=== PATIENT | female | born 1945 | race Caucasian/White ===

== ENCOUNTER → 2018-06-30 | Emergency (ER) | payer MEDICARE, OTHER ==
[~2018-06-30] MED LIST: AZIT500T45 PO; BUPXL150 PO; ESTR0.5T18 PO; IBUP400T13 PO; IOPAMIDOL 76% 100 ML INFUS BTL 100 ML ONE; LEVO100T95 PO; METF-411 PO; METR-1 PO; NS(*) 0.9% 1000 ML BAG 1,000 ML IV ONE; PANTOPRAZOLE SOD 40 MG IV VIAL IVP ONE; PRED20TA6 PO; SULF-198 PO; TRIA-18 PO; UBID30CA27 PO; VENL75CA58 PO; ZIA10 PO
--- NOTE | 2018-06-30 11:34 | ER Report ---
History and Physical Time Seen By MD: 11:31 HPI/ROS CHIEF COMPLAINT: Rectal bleeding HISTORY OF PRESENT ILLNESS: This is a 73-year-old female presents to the emergency department for rectal bleeding. Patient states that last night she had to wait 3 beers over about a three-hour period, had a hamburger as well. Went to bed had some abdominal cramping and light dizziness in the middle the night, she states the dizziness is not unusual for her, she did get up and go to the bathroom she fell she had a stool. Patient states she had a formed stool. At that time. On her way back to bed she felt dizzy, laid down on the floor and felt better after several minutes felt some additional cramping in her abdomen went back to the bathroom and states she had a bright red bloody stool with mucus in it. Patient states she's had several episodes of bloody stools since then. She states the mucous has since been cleared. She denies having history of hemorrhoids. She's had several colonoscopies in the past which were negative for any acute or concerning findings. Patient states she does not have any blood in her urine. No chest pain or shortness of breath. No nausea or vomiting. Discontinued lower abdominal cramping. No fevers. REVIEW OF SYSTEMS: Constitutional: No fever, no chills. Eyes: No discharge. ENT: No sore throat. Cardiovascular: No chest pain, no palpitations. Respiratory: No cough, no shortness of breath. Gastrointestinal: As above. Genitourinary: No hematuria. Musculoskeletal: No back pain. Skin: No rashes. Neurological: No headache. Allergies: Coded Allergies: ciprofloxacin (Verified Allergy, Unknown, 02/17/17) Home Meds Active Scripts Metronidazole (FLAGYL) 500 Mg Tablet, 500 MG PO Q8H for 5 Days, #15 TAB 0 Refills Prov:BAILEY JIMENEZ [employer] 06/30/18 Sulfamethoxazole/Trimet 800-160 Mg Tab (BACTRIM DS TABLET) 1 Each Tablet, 1 TAB PO Q12H for 5 Days, #10 TAB 0 Refills Prov:BAILEY JIMENEZ [employer] 06/30/18 Reported Medications Hctz/Bisoprolol (ZIAC 10-6.25 MG TABLET) 1 Ea Tab, 1 EA PO QDAY, TAB 06/30/18 Metformin Hcl (METFORMIN HCL) 500 Mg Tablet, 1 TAB PO BID, TAB 06/30/18 Venlafaxine Hcl (EFFEXOR XR) 75 Mg Cap.er.24h, 75 MG PO BID 06/30/18 Levothyroxine Sodium (Synthroid) 100 Mcg Tablet, 125 MCG PO QDAY 12/29/12 Discontinued Reported Medications Estradiol (ESTRACE) 0.5 Mg Tablet, 0.5 MG PO DAILY 11/04/13 Bupropion Hcl (WELLBUTRIN XL (OR EQUIV)) 150 Mg Tabcr, 300 MG PO DAILY 12/29/12 Discontinued Scripts Azithromycin (ZITHROMAX TRI-KAMINI) 500 Mg Tablet, 500 MG PO QDAY, #3 TAB 0 Refills Prov:CHARLOTTE JARAMILLO MD 02/17/17 Prednisone (PREDNISONE) 20 Mg Tablet, 60 MG PO QDAY, #12 TAB 0 Refills Prov:CHARLOTTE JARAMILLO MD 02/17/17 Past Medical/Surgical History The patient has a past medical and surgical history of migraines, hypercholesterolemia, exercise-induced asthma, arthritis, hypothyroidism, depression, anxiety, appendectomy, hysterectomy. Reviewed Nurses Notes: Yes Hx Smoking: Yes Hx Substance Use Disorder: No Constitutional Vital Sign - Last 24 Hours 06/30/18 06/30/18 06/30/18 06/30/18 11:31 11:31 11:52 12:05 Temp 98.4 Pulse 72 69 71 Resp 16 B/P (MAP) 171/86 (114) 171/86 Pulse Ox 94 91 91 06/30/18 06/30/18 06/30/18 06/30/18 12:20 12:30 12:35 12:50 Pulse 70 72 75 B/P (MAP) 191/87 (121) Pulse Ox 90 90 92 06/30/18 06/30/18 06/30/18 06/30/18 13:19 13:30 13:35 13:50 Pulse 75 76 B/P (MAP) 202/78 (119) 187/95 (125) Pulse Ox 92 92 06/30/18 06/30/18 06/30/18 14:00 14:05 14:19 Pulse 74 B/P (MAP) 196/89 (124) 198/91 (126) Pulse Ox 94 O2 Delivery Room Air Physical Exam General Appearance: The patient is alert, has no immediate need for airway protection and no signs of toxicity. Eyes: Pupils equal and round no pallor or injection. ENT, Mouth: Mucous membranes are moist. Very mild pallor to the lips otherwise unremarkable. Respiratory: There are no retractions, lungs are clear to auscultation. Cardiovascular: Regular rate and rhythm, grade 1-2 systolic murmur, no clicks or rubs. Gastrointestinal: Abdomen is soft and mild tenderness to the lower abdomen, inferior to the umbilicus. No masses, bowel sounds normal. Rectal exam showing no external hemorrhoids, fissures or bleeding. Digital rectal exam positive for blood on gloved finger. Neurological: Alert and oriented 4. Moving all extremities. Following all commands. No focal neuro deficits. Skin: Warm and dry, no rashes. Musculoskeletal: Neck is supple non tender. Extremities are nontender, nonswollen and have full range of motion. [ ] DIFFERENTIAL DIAGNOSIS: After history and physical exam differential diagnosis was considered for lower lower GI bleeding including but not limited to diverticulosis, tumor, AVM, hemorrhoid and anal fissure. Medical Decision Making Data Points Result Diagram: 06/30/18 1154 06/30/18 1154 Laboratory Hematology Test 06/30/18 00:00 06/30/18 11:54 06/30/18 13:19 Stool Occult Blood (IFOB) Positive (NEGATIVE) Red Blood Count 4.81 M/uL (4.17-5.56) Mean Corpuscular Volume 90.5 fL (80.0-96.0) Mean Corpuscular Hemoglobin 31.6 pg (26.0-33.0) Mean Corpuscular Hemoglobin Concent 34.9 g/dL (32.0-36.0) Red Cell Distribution Width 13.2 % (11.5-14.5) Mean Platelet Volume 8.0 fL (7.2-11.1) Neutrophils (%) (Auto) 88.1 % (39.4-72.5) Lymphocytes (%) (Auto) 8.9 % (17.6-49.6) Monocytes (%) (Auto) 2.6 % (4.1-12.4) Eosinophils (%) (Auto) 0.1 % (0.4-6.7) Basophils (%) (Auto) 0.3 % (0.3-1.4) Nucleated RBC Relative Count (auto) 0.2 /100WBC Neutrophils # (Auto) 10.1 K/uL (2.0-7.4) Lymphocytes # (Auto) 1.0 K/uL (1.3-3.6) Monocytes # (Auto) 0.3 K/uL (0.3-1.0) Eosinophils # (Auto) 0.0 K/uL (0.0-0.5) Basophils # (Auto) 0.0 K/uL (0.0-0.1) Nucleated RBC Absolute Count (auto) 0.02 K/uL Peripheral Blood Smear No Y/N Prothrombin Time 12.3 seconds (12.0-14.4) Prothromb Time International Ratio 0.92 Activated Partial Thromboplast Time 31 seconds (23-35) Sodium Level 137 mmol/L (137-145) Potassium Level 3.8 mmol/L (3.5-5.0) Chloride Level 104 mmol/L (98-107) Carbon Dioxide Level 22 mmol/L (22-31) Blood Urea Nitrogen 21 mg/dl (7-18) Creatinine 0.90 mg/dl (0.52-1.04) Glomerular Filtration Rate Calc > 60.0 Random Glucose 138 mg/dl (75-110) Calcium Level 9.3 mg/dl (8.4-10.2) Total Bilirubin 0.3 mg/dl (0.2-1.3) Aspartate Amino Transf (AST/SGOT) 25 U/L (0-35) Alanine Aminotransferase (ALT/SGPT) 35 U/L (0-56) Alkaline Phosphatase 65 U/L (0-126) Total Protein 7.1 g/dl (6.3-8.2) Albumin 4.3 g/dl (3.5-5.0) Lipase 116 U/L (23-300) Urine Color Straw Urine Clarity Clear Urine pH 5.0 pH (4.8-9.5) Urine Specific [place] 1.014 Urine Protein Negative mg/dL (NEGATIVE) Urine Glucose (UA) Negative mg/dL (NEGATIVE) Urine Ketones Negative mg/dL (NEGATIVE) Urine Blood Negative (NEGATIVE) Urine Nitrite Negative (NEGATIVE) Urine Bilirubin Negative (NEGATIVE) Urine Urobilinogen Negative mg/dL (0.2-1.9) Urine Leukocyte Esterase Negative (NEGATIVE) Urine RBC None /HPF (0-2/HPF) Urine WBC 1 /HPF (0-5/HPF) Urine Squamous Epithelial Cells Few /LPF (</=FEW) Urine Bacteria Negative /HPF (NONE-FEW) Urine Mucus None /HPF (NONE-FEW) Chemistry Test 06/30/18 00:00 06/30/18 11:54 06/30/18 13:19 Stool Occult Blood (IFOB) Positive (NEGATIVE) White Blood Count 11.5 k/uL (4.5-11.0) Red Blood Count 4.81 M/uL (4.17-5.56) Hemoglobin 15.2 g/dL (12.0-16.0) Hematocrit 43.5 % (34.0-47.0) Mean Corpuscular Volume 90.5 fL (80.0-96.0) Mean Corpuscular Hemoglobin 31.6 pg (26.0-33.0) Mean Corpuscular Hemoglobin Concent 34.9 g/dL (32.0-36.0) Red Cell Distribution Width 13.2 % (11.5-14.5) Platelet Count 218 K/uL (150-450) Mean Platelet Volume 8.0 fL (7.2-11.1) Neutrophils (%) (Auto) 88.1 % (39.4-72.5) Lymphocytes (%) (Auto) 8.9 % (17.6-49.6) Monocytes (%) (Auto) 2.6 % (4.1-12.4) Eosinophils (%) (Auto) 0.1 % (0.4-6.7) Basophils (%) (Auto) 0.3 % (0.3-1.4) Nucleated RBC Relative Count (auto) 0.2 /100WBC Neutrophils # (Auto) 10.1 K/uL (2.0-7.4) Lymphocytes # (Auto) 1.0 K/uL (1.3-3.6) Monocytes # (Auto) 0.3 K/uL (0.3-1.0) Eosinophils # (Auto) 0.0 K/uL (0.0-0.5) Basophils # (Auto) 0.0 K/uL (0.0-0.1) Nucleated RBC Absolute Count (auto) 0.02 K/uL Peripheral Blood Smear No Y/N Prothrombin Time 12.3 seconds (12.0-14.4) Prothromb Time International Ratio 0.92 Activated Partial Thromboplast Time 31 seconds (23-35) Glomerular Filtration Rate Calc > 60.0 Calcium Level 9.3 mg/dl (8.4-10.2) Total Bilirubin 0.3 mg/dl (0.2-1.3) Aspartate Amino Transf (AST/SGOT) 25 U/L (0-35) Alanine Aminotransferase (ALT/SGPT) 35 U/L (0-56) Alkaline Phosphatase 65 U/L (0-126) Total Protein 7.1 g/dl (6.3-8.2) Albumin 4.3 g/dl (3.5-5.0) Lipase 116 U/L (23-300) Urine Color Straw Urine Clarity Clear Urine pH 5.0 pH (4.8-9.5) Urine Specific [place] 1.014 Urine Protein Negative mg/dL (NEGATIVE) Urine Glucose (UA) Negative mg/dL (NEGATIVE) Urine Ketones Negative mg/dL (NEGATIVE) Urine Blood Negative (NEGATIVE) Urine Nitrite Negative (NEGATIVE) Urine Bilirubin Negative (NEGATIVE) Urine Urobilinogen Negative mg/dL (0.2-1.9) Urine Leukocyte Esterase Negative (NEGATIVE) Urine RBC None /HPF (0-2/HPF) Urine WBC 1 /HPF (0-5/HPF) Urine Squamous Epithelial Cells Few /LPF (</=FEW) Urine Bacteria Negative /HPF (NONE-FEW) Urine Mucus None /HPF (NONE-FEW) Coagulation Test 06/30/18 11:54 Prothrombin Time 12.3 seconds Prothromb Time International Ratio 0.92 Activated Partial Thromboplast Time 31 seconds Urinalysis Test 06/30/18 13:19 Urine Color Straw Urine Clarity Clear Urine pH 5.0 pH (4.8-9.5) Urine Specific [place] 1.014 Urine Protein Negative mg/dL (NEGATIVE) Urine Glucose (UA) Negative mg/dL (NEGATIVE) Urine Ketones Negative mg/dL (NEGATIVE) Urine Blood Negative (NEGATIVE) Urine Nitrite Negative (NEGATIVE) Urine Bilirubin Negative (NEGATIVE) Urine Urobilinogen Negative mg/dL (0.2-1.9) Urine Leukocyte Esterase Negative (NEGATIVE) Urine RBC None /HPF (0-2/HPF) Urine WBC 1 /HPF (0-5/HPF) Urine Squamous Epithelial Cells Few /LPF (</=FEW) Urine Bacteria Negative /HPF (NONE-FEW) Urine Mucus None /HPF (NONE-FEW) EKG/Imaging EKG Interpretation 12 lead EKG: Time of EKG at 1159. Rhythm: Normal sinus rhythm, ventricular rate 69 bpm. [place]: normal QRS: normal ST segments: No ST depression or elevation identified. No significant changes from the 12/29/2012 EKG. Imaging Location: [facility] - [place], [place] Patient: Luna Corrales : 1945 Visit/Account:[id number] Date of Sevice: 06/30/2018 EXAMINATION: CT abdomen with IV contrast CT pelvis with IV contrast HISTORY: Abdominal pain, hematochezia. COMPARISON: None. TECHNIQUE: Axial images were taken through the abdomen and pelvis with intravenous contrast. Sagittal and coronal reformatted images are also submitted. CONTRAST: 75 mL of IV Isovue-370. One of the following dose optimization techniques was utilized in the performance of this exam: Automated exposure control; adjustment of the mA and/ or kV according to the patient's size; or use of an iterative reconstruction technique. Specific details can be referenced in the facility's radiology CT exam operational policy. FINDINGS: Liver/biliary: Mild diffuse fatty infiltration of the liver without focal lesion. There is no biliary ductal dilatation. Pancreas: Negative. Spleen: Negative. Adrenal glands: Negative. Kidneys: Negative. Pelvic structures: Previous hysterectomy. 1.4 cm hypodense left ovarian cyst. Right ovary is small and normal in appearance for age. Bowel: Moderate wall thickening and submucosal edema of the colon from the distal transverse colon to the rectum. There are no dilated bowel loops. The appendix is not visualized. Peritoneum/retroperitoneum/mesenteries: Mild pericolonic inflammation adjacent to the abnormal colon. Vessels: Vascular structures are patent. Mild atherosclerotic calcifications of the aorta. Musculoskeletal/body wall: Negative. Lymph nodes: Negative. Lower chest: Negative. IMPRESSION: 1. Moderate inflammation of the colon from the distal transverse colon to the rectum. Findings are suspicious for an inflammatory/infectious colitis. 2. 1.4 cm left ovarian cyst. Further evaluation is recommended with nonurgent pelvic ultrasound, in a patient of this age. 3. Previous hysterectomy. 4. Mild diffuse fatty infiltration of the liver. Report Dictated By: Julianna Peters MD at 06/30/2018 1:57 PM Report E-Signed By: Julianna Peters MD at 06/30/2018 2:07 PM WSN:[id number] ED Course/Re-evaluation Clinical Indication for ER IV: Hydration, IV Access ED Course The patient was admitted to room. A history physical were obtained. Differential diagnoses were considered. An IV was started. A CBC, CMP, coag studies and type and screen were obtained.CBC showing WBCs 11.5 with a left shift, chemistry unremarkable coags normal negative urine positive occult blood in stool. The CT of the abdomen and pelvis showing infectious colitis. I did review these results with the patient. Patient was also given a 1 L normal saline bolus. 40 mg IV Protonix. The patient did state the pain had improved. The patient was started on Bactrim and Flagyl. Patient was instructed to follow- up with her primary care provider within one week for reevaluation sooner if she has any other concerns. She was also instructed to return to the ER for any other concerns or worsening symptoms. Patient exposed understanding was discharged home. I also discussed the patient's beta blood pressure she states she did not take her blood pressure medication before coming into the emergency department this morning she was instructed to take her blood pressure medication when she returns home. 06/30/2018 1:47:13 pm I did review the laboratory studies and the urine exam with the patient. I did update her that I'm waiting on the CT results at this time. Patient denies increased pain no rectal bleeding at this time. 06/30/2018 2:34:15 pm I did review the CT results with the patient, did tell her I'll go ahead and treat her for [facility]. I also discussed the patient's high blood pressure, she did not take her blood pressure medicine this morning she is asymptomatic and will take her blood pressure medicine when she returns home. Decision to Disposition Date: Jun 30, 2018 Decision to Disposition Time: 14:23 Depart Departure Latest Vital Signs Vital Signs Date Time Temp Pulse Resp B/P (MAP) Pulse Ox O2 Delivery O2 Flow Rate FiO2 06/30/18 14:19 198/91 (126) 06/30/18 14:05 74 94 Room Air 06/30/18 11:31 98.4 16 Impression: Primary Impression: Infectious colitis Condition: Improved Disposition: HOME OR SELF-CARE Referrals: FABIÁN RUIZ DO (PCP) New Scripts Metronidazole (FLAGYL) 500 Mg Tablet 500 MG PO Q8H for 5 Days, #15 TAB 0 Refills Prov: BAILEY JIMENEZ 06/30/18 Sulfamethoxazole/Trimet 800-160 Mg Tab (BACTRIM DS TABLET) 1 Each Tablet 1 TAB PO Q12H for 5 Days, #10 TAB 0 Refills Prov: BAILEY JIMENEZ 06/30/18 Patient Instructions: Infectious Colitis (ED) Additional Instructions: Your laboratory studies today are normal. The CT of your abdomen and pelvis is showing an infectious colitis which does explain the bloody urine or stool. Take the Flagyl and Bactrim as directed. Follow-up with your primary care provider within one week for reevaluation. Drink plenty of water. Get plenty of rest. Avoid taking NSAIDs such as ibuprofen for the next 7 days. Take acetaminophen instead of the ibuprofen. Return to the emergency department for any other concerns or worsening symptoms. Your blood pressure did increase while you were in the emergency department, be sure to take your blood pressure medicine when you get home, and she did not take it this morning. BAILEY JIMENEZ Jun 30, 2018 11:34
[2018-06-30 12:06] LABS: PLATELET COUNT, AUTOMATED 218 K/uL (150-450)
[2018-06-30 12:20] LABS: INR 0.92
--- NOTE | 2018-06-30 13:24 | EKG ---
FACILITY: [facility] PATIENT NAME: BASIL THOMAS : [id number] MR: [id number] V: [id number] EXAM DATE: ORDERING PHYSICIAN: BAILEY JIMENEZ TECHNOLOGIST: LILIA Test Reason : GI PROBLEM Blood Pressure : / mmHG Vent. Rate : 069 BPM Atrial Rate : 069 BPM P-R Int : 154 ms QRS Dur : 086 ms QT Int : 436 ms P-R-T Axes : 049 005 025 degrees QTc Int : 467 ms Normal sinus rhythm Normal ECG When compared with ECG of 29-DEC-2012 14:07, No significant change was found Confirmed by REYNA WHITFIELD ([id number]) on 06/30/2018 1:24:10 PM Referred By: Confirmed By:REYNA WHITFIELD
--- NOTE | 2018-06-30 14:11 | RADIOLOGY IMAGING REPORT ---
FACILITY: [facility] PATIENT NAME: Luna Corrales : 1945 MR: [id number] V: [id number] EXAM DATE: ORDERING PHYSICIAN: BAILEY JIMENEZ TECHNOLOGIST: Location: [facility] - [place] Patient: Luna Corrales : 1945 Visit/Account:[id number] Date of Sevice: 06/30/2018 EXAMINATION: CT abdomen with IV contrast CT pelvis with IV contrast HISTORY: Abdominal pain, hematochezia. COMPARISON: None. TECHNIQUE: Axial images were taken through the abdomen and pelvis with intravenous contrast. Sagitt al and coronal reformatted images are also submitted. CONTRAST: 75 mL of IV Isovue-370. One of the following dose optimization techniques was utilized in the performance of this exam: Autom ated exposure control; adjustment of the mA and/or kV according to the patient's size; or use of an i terative reconstruction technique. Specific details can be referenced in the facility's radiology C T exam operational policy. FINDINGS: Liver/biliary: Mild diffuse fatty infiltration of the liver without focal lesion. There is no biliary ductal dilatation. Pancreas: Negative. Spleen: Negative. Adrenal glands: Negative. Kidneys: Negative. Pelvic structures: Previous hysterectomy. 1.4 cm hypodense left ovarian cyst. Right ovary is small and normal in appearance for age. Bowel: Moderate wall thickening and submucosal edema of the colon from the distal transverse colon to the rectum. There are no dilated bowel loops. The appendix is not visualized. Peritoneum/retroperitoneum/mesenteries: Mild pericolonic inflammation adjacent to the abnormal colon. Vessels: Vascular structures are patent. Mild atherosclerotic calcifications of the aorta. Musculoskeletal/body wall: Negative. Lymph nodes: Negative. Lower chest: Negative. IMPRESSION: 1. Moderate inflammation of the colon from the distal transverse colon to the rectum. Findings are lyons spicious for an inflammatory/infectious colitis. 2. 1.4 cm left ovarian cyst. Further evaluation is recommended with nonurgent pelvic ultrasound, in a patient of this age. 3. Previous hysterectomy. 4. Mild diffuse fatty infiltration of the liver. Report Dictated By: Julianna Peters MD at 06/30/2018 1:57 PM Report E-Signed By: Julianna Peters MD at 06/30/2018 2:07 PM WSN:[id number]
[2018-06-30 14:19] VITALS: BP 198/91
== END ==
LOC: ER 11:32
DX: A09 Infectious gastroenteritis and colitis, unspecified (principal); E78.00 Pure hypercholesterolemia, unspecified; E03.9 Hypothyroidism, unspecified; F41.9 Anxiety disorder, unspecified; F32.9 Major depressive disorder, single episode, unspecified; Z87.891 Personal history of nicotine dependence
CPT/HCPCS: 36415; 74177; 81001; 82274; 83690; 85025; 85610; 85730; 86850; 86900; 86901; 93005; 96374; 99284; C9113; J7030; Q9967; 82040; 82247; 82310; 82374; 82435; 82565; 82947; 84075; 84132; 84155; 84295; 84450; 84460; 84520

== ENCOUNTER → 2018-08-27 | Outpatient (CLI) | payer MEDICARE, OTHER ==
[~2018-08-27] MED LIST changes: +CHOL400C10 PO; -IOPAMIDOL 76% 100 ML INFUS BTL 100 ML ONE; +LACT1CAP12; +MAX75 PO; -METF-411 PO; +METF-450 PO; +METF500T4 PO; -NS(*) 0.9% 1000 ML BAG 1,000 ML IV ONE; -PANTOPRAZOLE SOD 40 MG IV VIAL IVP ONE; +VENL75TA12 PO
--- NOTE | 2018-08-28 13:52 | RADIOLOGY IMAGING REPORT ---
FACILITY: [facility] PATIENT NAME: BASIL THOMAS : [id number] MR: [id number] V: [id number] EXAM DATE: [id number] ORDERING PHYSICIAN: FABIÁN RUIZ TECHNOLOGIST: Shital Crespo PROCEDURE:BILATERAL DIGITAL SCREENING MAMMOGRAM WITH CAD ASSISTED INTERPRETATION & 3D TOMOSYNTHESIS COMPARISON:Prior mammograms 07/31/17, 05/16/16, 11/18/14, 11/10/13, 09/10/11. INDICATIONS:SCREENING FINDINGS: Moderately dense fibroglandular tissue is seen throughout the breasts. The parenchymal pattern has remained stable allowing for difference in mammographic technique & patient positioning. There is no evidence of malignant appearing mass, malignant appearing calcifications or other secondary sign of malignancy in either breast. DIAGNOSTIC CATEGORY 1--NEGATIVE. RECOMMENDATIONS: ROUTINE MAMMOGRAM AND CLINICAL EVALUATION. IMPRESSION: BIRADS 1: Negative. No significant abnormality is seen. Dictated by: Millie Zaragoza M.D. on 08/27/2018 at 15:54 Transcribed by: LARRY on 08/27/2018 at 15:57 Approved by: Millie Zaragoza M.D. on 08/28/2018 at 13:51 [facility]
== END ==
LOC: MAMO 02:14
PROVIDERS: ATTEND Family Medicine
DX: Z12.31 Encounter for screening mammogram for malignant neoplasm of breast (principal)
CPT/HCPCS: 77063; 77067

== ENCOUNTER 2018-09-02 01:03 | Day surgery (SDC) | payer MEDICARE, OTHER ==
[~2018-09-02] VITALS: Ht 167.6 cm; Wt 75.3 kg
[2018-09-02] MEDS ORDERED: PROPOFOL EMUL(*) 10MG/ML 20 ML 40 ML ONE (07:01)
[2018-09-02 07:50] VITALS: BP 150/74
[2018-09-02] MEDS ORDERED: NORMOSOL R SOLN(*) 1000 ML BAG 1,000 ML IV PRN (07:50)
[2018-09-02] MEDS ORDERED: LIDOCAINE/SOD BICARB 8.4% SYR ID ONE (07:50)
[2018-09-02 10:24] VITALS: BP 113/64
--- NOTE | 2018-09-02 10:26 | Short(Outpt) Discharge Summary ---
Discharge Summary Reason for Hosp/Final Diag: (1) History of colon polyps Status: Chronic Hospital Course & Plan: Colonoscopy with polypectomy x1 from cecum completed without problems. (2) Colitis Status: Resolved Departure Discharge to: Home, Self Care Discharge Instructions Home Meds Reported Medications Triamterene/Hctz (TRIAMTERENE-HCTZ 75-50 MG TAB) 1 Each Tab, 1 EACH PO DAILY, TAB 08/22/18 Lactobacillus Combo No.11 (PROBIOTIC) Unknown Strength Cap.sprink 08/13/18 Cholecalciferol (Vitamin D3) (VITAMIN D) 400 Unit Capsule, 25 MCG PO, CAPSULE 08/13/18 Metformin Hcl (METFORMIN HCL ER) 500 Mg Tab.er.24, 0.5 TAB PO QDAY, TAB 08/13/18 Venlafaxine Hcl (VENLAFAXINE HCL) 75 Mg Tab, 75 MG PO BID, TAB 08/13/18 Ibuprofen (IBUPROFEN) 400 Mg Tablet, 1 TAB PO BID, TAB 08/11/18 Levothyroxine Sodium (Synthroid) 100 Mcg Tablet, 125 MCG PO QDAY 12/29/12 Diet: Regular Activity: As Tolerated Special Instructions: Your colonoscopy was completed without problems and your prep was excellent (Good Job!!). I removed a small polyp from your colon but I didn't find any inflammation or other problems. The polyp was sent to pathology. My office will call you in the next week or so and let you know what the polyp is but, in any case, your next colonoscopy should be in 5 years due to your previous history of colon polyps. REYNA ZURITA MD Sep 02, 2018 10:26
[2018-09-02 10:30] VITALS: BP 122/71
[2018-09-02 10:35] VITALS: BP 143/72
== END 2018-09-02 11:00 | disposition home or self-care (01) ==
LOC: OR 01:03
PROVIDERS: ATTEND Surgery
DX: D12.0 Benign neoplasm of cecum (principal); E11.9 Type 2 diabetes mellitus without complications
CPT/HCPCS: 00811; 36416; 45380; 82948; 88305; J2704

== ENCOUNTER → 2018-09-11 | Outpatient (CLI) | payer MEDICARE, OTHER | LOC: LAB 15:04 | PROVIDERS: ATTEND Family Medicine | DX: R06.02 Shortness of breath (principal) | CPT/HCPCS: 36415; 86635 ==